=== PATIENT | female | born 1930 | race Caucasian/White ===

== ENCOUNTER 2018-05-03 10:59 | Outpatient (CLI) | payer MEDICARE, BC | END 2018-05-03 11:00 | disposition home or self-care (01) | LOC: BICMAMMO 10:59 | PROVIDERS: ATTEND Obstetrics & Gynecology | DX: Z12.31 Encounter for screening mammogram for malignant neoplasm of breast (principal); R92.1 Mammographic calcification found on diagnostic imaging of breast | CPT/HCPCS: 77063; 77067 ==

== ENCOUNTER 2018-06-01 13:50 | Outpatient (CLI) | payer MEDICARE, BC ==
--- NOTE | 2018-06-01 15:58 | CT ---
CTA BRAIN: HISTORY: Left internal carotid aneurysm. FINDINGS: Contrast-enhanced CTA brain performed. Two-D and 3D reconstructed images performed on an independent 3D work station. Comparison is made to previous exam from 10/08/2010. Contrast-enhanced CTA demonstrates an enlarging left ICA aneurysm. Three-dimensional measurements of this left ICA aneurysm now measure 3.7 x 2.9 x 3.4 cm compared to previous 3-dimensional measurement s of 2.6 x 2.7 x 3.1 cm. The aneurysm is in the left medial mortar worker space medial to the left jillian ible and posterior to the left pterygoid plate. The aneurysm has a peripheral rim of calcified densi ty. There continues to be a definite visible communication with flow from the left internal carotid artery. The petrous, cavernous, and supraclinoid portions of the internal carotid artery are patent. Normal flow is seen in the JOHNY, MCA, and PHOTO BOOTH OPERATOR vessels. Please see accompanying left carotid CTA dictation. 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 Persistent flow is seen within the lumen. There is a calcified peripheral aneurysm margin. POS: [facility]
--- NOTE | 2018-06-01 16:18 | CT ---
CTA CAROTID ARTERIES: 06/01/18 HISTORY: Left carotid artery aneurysm. Contrast enhanced CTA of the carotid arteries performed. 2D and 3D reconstructed images performed on an independent 3D workstation. The aortic arch demonstrates some calcifications. The left common carotid artery contains some minima l proximal calcifications but no significant proximal left CCA disease. The left carotid bifurcation is patent. There is left seating captain space positioned aneurysm which originates from the left ICA prox imal to the left ICA entering the skull base. This aneurysm appears to have increased in size since t he previous comparison CTA from 2010. Please see accompanying intracranial CTA dictation which descri bes the size changes. The right brachiocephalic artery is patent. The right and left subclavian arteries are patent. The ri ght and left vertebral arteries are also patent. The right common and internal carotid arteries are p atent without evidence of significant stenosis. The right ICA after the CCA bifurcation is somewhat t ortuous. IMPRESSION: Enlarging left proximal ICA aneurysm. The aneurysm is within the left seating captain space below the skul l base. POS: [facility]
== END 2018-06-01 13:51 | disposition home or self-care (01) ==
LOC: SCSCT 13:50
PROVIDERS: ATTEND Neurological Surgery
DX: I72.0 Aneurysm of carotid artery (principal)
CPT/HCPCS: 70496; 70498; 82565